=== PATIENT | male | born 1945 | race Hispanic/Latino ===

== ENCOUNTER 2018-11-11 22:14 | Inpatient (IN) | payer MEDICARE ==
[~2018-11-11] VITALS: Ht 160 cm; Wt 68.8 kg
[~2018-11-11 22:14] MED LIST: GEMF600T5 PO; LISI1TAB9 PO; METO-408 PO; PRAV40TA3 PO; WARF2.5T85 PO
[2018-11-11 22:56] LABS: APPEARANCE,URINE Cloudy (CLEAR); BILIRUBIN,URINE Negative (NEGATIVE); COLOR,URINE Yellow (YELLOW); GLUCOSE, URINE (UA) Negative (NEGATIVE); KETONES,URINE Negative (NEGATIVE); LEUKOCYTE ESTERASE ,URINE Moderate (NEGATIVE); NITRATE,URINE Negative (NEGATIVE); OCCULT BLOOD,URINE Moderate (NEGATIVE); PROTEIN,URINE POS 1+ (NEGATIVE)
[2018-11-11] MEDS ORDERED: SODIUM CHLORIDE 0.9% 500ML 500 ML IV ONE (23:17)
[2018-11-11] MEDS ORDERED: ACETAMINOPHEN 325 MG TAB ONE (23:17)
[2018-11-11 23:20] LABS: BACTERIA,URINE Few /HPF (None Seen)
[2018-11-11 23:21] LABS: MUCUS,URINE Moderate LPF (None Seen); RENAL EPITHELIAL CELLS,URINE Few /HPF (None Seen); SQUAMOUS EPITHELIAL CELL,UR Moderate /HPF (0-2)
[2018-11-11 23:21] LABS: BASOPHILS % (AUTO) 0.2 % (0.0-5.0); HEMATOCRIT 44.4 % (42-54); LYMPHOCYTES % (AUTO) 3.6 % (21.0-51.0); MEAN CORPUSCULAR HEMOGLOBIN 31.4 pg (27.0-33.0); MEAN CORPUSCULAR HGB CONC 34.1 g/dL (32.0-36.0); MONOCYTES % (AUTO) 5.7 % (3.0-13.0); NEUTROPHILS % (AUTO) 90.5 % (40.0-77.0); PLATELET COUNT (AUTO) 158 K/uL (130-400); RED BLOOD CELL COUNT(AUTO) 4.82 MIL/uL (4.50-6.20); RED CELL DISTRIBUTION WIDTH 14.1 % (11.0-15.5); WHITE BLOOD COUNT (AUTO) 16.5 K/uL (4.8-10.8)
[2018-11-11 23:30] LABS: CREATININE 1.6 mg/dL (0.5-1.5); POTASSIUM 4.9 mmol/L (3.5-5.1)
[2018-11-11 23:34] LABS: ALBUMIN 3.5 g/dL (3.5-5.0); BILIRUBIN,DIRECT 0.2 mg/dL (0.0-0.3); BILIRUBIN,TOTAL 2.1 mg/dL (0.2-1.0); TOTAL PROTEIN, SERUM 8.2 g/dL (6.0-8.3)
[2018-11-12] MEDS ORDERED: LEVOFLOXACIN 500 MG/D5W 100 ML 100 ML ONE (00:43)
[2018-11-12] MEDS: LEVOFLOXACIN 500 MG/D5W 100 ML 100 ML IV SCH (01:15)
[2018-11-12] MEDS: SODIUM CHLORIDE 0.9% 1000ML 1,000 ML IV SCH ×3 (01:15→17:10)
[2018-11-12] MEDS ORDERED: ONDANSETRON HCL 4 MG/2 ML VIAL IV PRN (01:15)
[2018-11-12 01:56] LABS: BASOPHILS % (AUTO) 0.3 % (0.0-5.0); EOSINOPHILS % (AUTO) 0.1 % (0.0-8.0); HEMATOCRIT 39.3 % (42-54); LYMPHOCYTES % (AUTO) 3.2 % (21.0-51.0); MEAN CORPUSCULAR HEMOGLOBIN 30.7 pg (27.0-33.0); MEAN CORPUSCULAR HGB CONC 33.5 g/dL (32.0-36.0); MEAN CORPUSCULAR VOLUME 91.7 fL (79-99); MONOCYTES % (AUTO) 5.6 % (3.0-13.0); NEUTROPHILS % (AUTO) 90.8 % (40.0-77.0); NUCLEATED RED BLOOD CELLS 0.1 % (0.0-0.19); PLATELET COUNT (AUTO) 131 K/uL (130-400); RED BLOOD CELL COUNT(AUTO) 4.28 MIL/uL (4.50-6.20); RED CELL DISTRIBUTION WIDTH 13.9 % (11.0-15.5); WHITE BLOOD COUNT (AUTO) 15.9 K/uL (4.8-10.8)
[2018-11-12 02:08] LABS: ALBUMIN 2.9 g/dL (3.5-5.0); BILIRUBIN,TOTAL 1.6 mg/dL (0.2-1.0); CREATININE 1.7 mg/dL (0.5-1.5); POTASSIUM 4.1 mmol/L (3.5-5.1); TOTAL PROTEIN, SERUM 6.7 g/dL (6.0-8.3)
[2018-11-12 04:40] VITALS: BP 160/79
[2018-11-12] MEDS: ACETAMINOPHEN 325 MG TAB PO PRN ×4 (04:54→20:06)
[2018-11-12] MEDS ORDERED: WARF2.5T85 PO (06:33)
[2018-11-12] MEDS ORDERED: DRON400T2 PO (06:33)
[2018-11-12 07:16] LABS: BASOPHILS % (AUTO) 0.3 % (0.0-5.0); HEMATOCRIT 40.3 % (42-54); LYMPHOCYTES % (AUTO) 2.6 % (21.0-51.0); MEAN CORPUSCULAR HGB CONC 33.6 g/dL (32.0-36.0); MEAN CORPUSCULAR VOLUME 92.2 fL (79-99); MONOCYTES % (AUTO) 6.8 % (3.0-13.0); NEUTROPHILS % (AUTO) 90.3 % (40.0-77.0); PLATELET COUNT (AUTO) 132 K/uL (130-400); RED BLOOD CELL COUNT(AUTO) 4.37 MIL/uL (4.50-6.20)
[2018-11-12 07:34] LABS: INR 3.47 (0.85-1.15); PARTIAL THROMBOPLASTIN TIME 63.3 SEC (26.3-35.5)
[2018-11-12 07:37] LABS: PROTHROMBIN TIME 35.6 SEC (9.6-11.6)
[2018-11-12 07:40] LABS: ALBUMIN 2.8 g/dL (3.5-5.0); BILIRUBIN,TOTAL 1.5 mg/dL (0.2-1.0); CREATININE 1.9 mg/dL (0.5-1.5); MAGNESIUM 1.7 mg/dL (1.80-2.40); TOTAL PROTEIN, SERUM 6.5 g/dL (6.0-8.3)
[2018-11-12 08:00] VITALS: BP 106/50
[2018-11-12] MEDS: ENOXAPARIN SODIUM 30 MG/0.3 ML SQ SCH (09:00)
[2018-11-12] MEDS ORDERED: PANTOPRAZOLE SODIUM 40 MG TABLET.DR PO SCH (09:00)
[2018-11-12 12:00] VITALS: BP 119/76
--- NOTE | 2018-11-12 12:33 | NUR ---
POSITIVE BLOOD CULTURES PATIENT HAS POSITIVE BLOOD CULTURES AT THIS TIME. AWARE. NEW ORDERS RECEIVED TO REPEAT BLOOD CULTURES NOW. ORDERS RECEIVED AND CARRIED OUT. PATIENT AWARE. WILL CONTIUE TO BE OBSERVED. Addendum: 11/12/18 at 1625 by SE SHANKS RN RN Amended: Links added.
[2018-11-12 16:00] VITALS: BP 118/67
--- NOTE | 2018-11-12 16:26 | NUR ---
DCP CM met with pt and family discussed dc plans. Pt is independent prior to admission, lives at home with spouse. Uses cane on and off. Has a provider 4.5hrs/day. Goes to [facility]. Pt feels safe to go back home, still drives, spouse able to assist as necessary. DC plan to home once stable. CM to cont to follow up. Addendum: 11/12/18 at 1627 by MONE JENSEN LVN CM Amended: Links added.
[2018-11-12] MEDS ORDERED: MAGNESIUM 2GM PREMIX 50ML 50 ML IV SCH (16:30)
[2018-11-12 19:50] VITALS: BP 128/53
[2018-11-12] MEDS: SIMVASTATIN 20 MG TABLET PO SCH (21:37)
[2018-11-12] MEDS: DRONEDARONE HYDROCHLORIDE 400 MG TABLET PO SCH (21:37)
[2018-11-12] MEDS: GEMFIBROZIL 600 MG TABLET PO SCH (21:37)
[2018-11-12] MEDS: METOPROLOL TARTRATE 25 MG TAB PO SCH (21:37)
[2018-11-12 23:34] VITALS: BP 94/53
[2018-11-13] MEDS: LEVOFLOXACIN 500 MG/D5W 100 ML 100 ML IV SCH (00:44)
[2018-11-13 03:05] VITALS: BP 115/62
[2018-11-13 04:47] LABS: HEMATOCRIT 39.5 % (42-54); MEAN CORPUSCULAR HEMOGLOBIN 30.7 pg (27.0-33.0); MEAN CORPUSCULAR HGB CONC 33.9 g/dL (32.0-36.0); MEAN CORPUSCULAR VOLUME 90.6 fL (79-99); NUCLEATED RED BLOOD CELLS 0.1 % (0.0-0.19); PLATELET COUNT (AUTO) 98 K/uL (130-400); RED BLOOD CELL COUNT(AUTO) 4.36 MIL/uL (4.50-6.20); WHITE BLOOD COUNT (AUTO) 10.6 K/uL (4.8-10.8)
[2018-11-13 04:59] LABS: MAGNESIUM 2.5 mg/dL (1.80-2.40); PHOSPHORUS 2.9 mg/dL (2.5-4.9); POTASSIUM 3.9 mmol/L (3.5-5.1)
[2018-11-13 05:02] LABS: B-TYPE NATRIURETIC PEPTIDE 823 pg/mL (0-100)
[2018-11-13 05:20] LABS: INR 4.21 (0.85-1.15)
[2018-11-13 07:00] VITALS: BP 124/70
[2018-11-13] MEDS: DRONEDARONE HYDROCHLORIDE 400 MG TABLET PO SCH ×2 (08:59→21:18)
[2018-11-13] MEDS: ENOXAPARIN SODIUM 30 MG/0.3 ML SQ SCH (09:00)
[2018-11-13] MEDS: METOPROLOL TARTRATE 25 MG TAB PO SCH ×2 (09:00→21:18)
[2018-11-13] MEDS: GEMFIBROZIL 600 MG TABLET PO SCH ×2 (09:00→21:17)
[2018-11-13] MEDS: PANTOPRAZOLE SODIUM 40 MG TABLET.DR PO SCH (09:00)
[2018-11-13] MEDS: [UNRECOGNIZED DRUG - OTHER] PO SCH (09:05)
[2018-11-13] MEDS: HYDROCHLOROTHIAZIDE PO SCH (09:05)
[2018-11-13] MEDS: LISINOPRIL PO SCH (09:05)
[2018-11-13 11:00] VITALS: BP 106/47
[2018-11-13 16:00] VITALS: BP 95/51
[2018-11-13] MEDS: SODIUM CHLORIDE 0.9% 1000ML 1,000 ML IV SCH (18:14)
[2018-11-13] MEDS ORDERED: PHYTONADIONE 10 MG/1 ML AMP IM ONE (18:30)
[2018-11-13 19:05] VITALS: BP 99/58
[2018-11-13] MEDS: SIMVASTATIN 20 MG TABLET PO SCH (21:17)
[2018-11-14 00:20] VITALS: BP 96/51
[2018-11-14] MEDS: LEVOFLOXACIN 500 MG/D5W 100 ML 100 ML IV SCH ×2 (00:47→21:13)
[2018-11-14] MEDS: ACETAMINOPHEN 325 MG TAB PO PRN (03:46)
[2018-11-14 04:25] VITALS: BP 89/60
[2018-11-14 04:37] LABS: HEMATOCRIT 37.2 % (42-54); MEAN CORPUSCULAR HEMOGLOBIN 31.8 pg (27.0-33.0); MEAN CORPUSCULAR HGB CONC 35.1 g/dL (32.0-36.0); MEAN CORPUSCULAR VOLUME 90.7 fL (79-99); PLATELET COUNT (AUTO) 109 K/uL (130-400); RED CELL DISTRIBUTION WIDTH 14.2 % (11.0-15.5); WHITE BLOOD COUNT (AUTO) 8.4 K/uL (4.8-10.8)
[2018-11-14 04:45] LABS: PARTIAL THROMBOPLASTIN TIME 81.8 SEC (26.3-35.5)
[2018-11-14 04:49] LABS: CREATININE 2.1 mg/dL (0.5-1.5); MAGNESIUM 2.4 mg/dL (1.80-2.40); PHOSPHORUS 1.9 mg/dL (2.5-4.9); POTASSIUM 3.7 mmol/L (3.5-5.1)
[2018-11-14] MEDS: SODIUM CHLORIDE 0.9% 1000ML 1,000 ML IV SCH (04:58)
[2018-11-14 05:08] LABS: PROTHROMBIN TIME 36.7 SEC (9.6-11.6)
[2018-11-14 05:09] LABS: INR 3.58 (0.85-1.15)
[2018-11-14 08:00] VITALS: BP 112/61
[2018-11-14] MEDS: GEMFIBROZIL 600 MG TABLET PO SCH ×2 (08:29→21:13)
[2018-11-14] MEDS: PANTOPRAZOLE SODIUM 40 MG TABLET.DR PO SCH (08:29)
[2018-11-14] MEDS: METOPROLOL TARTRATE 25 MG TAB PO SCH ×2 (08:29→21:14)
[2018-11-14] MEDS: [UNRECOGNIZED DRUG - OTHER] PO SCH (08:32)
[2018-11-14] MEDS: LISINOPRIL PO SCH (08:32)
[2018-11-14] MEDS: HYDROCHLOROTHIAZIDE PO SCH (08:32)
[2018-11-14 09:03] LABS: INR 2.96 (0.85-1.15); PARTIAL THROMBOPLASTIN TIME 79.1 SEC (26.3-35.5); PROTHROMBIN TIME 30.4 SEC (9.6-11.6)
[2018-11-14] MEDS: DRONEDARONE HYDROCHLORIDE 400 MG TABLET PO SCH ×2 (09:37→21:13)
[2018-11-14 11:00] VITALS: BP 111/60
[2018-11-14 16:00] VITALS: BP 109/62
[2018-11-14 19:05] VITALS: BP 115/91
[2018-11-14] MEDS: SIMVASTATIN 20 MG TABLET PO SCH (21:13)
[2018-11-15 00:01] VITALS: BP 94/55
[2018-11-15 03:59] VITALS: BP 90/55
[2018-11-15 05:44] LABS: BASOPHILS % (AUTO) 0.3 % (0.0-5.0); EOSINOPHILS % (AUTO) 0.5 % (0.0-8.0); HEMATOCRIT 36.8 % (42-54); LYMPHOCYTES % (AUTO) 9.8 % (21.0-51.0); MEAN CORPUSCULAR HEMOGLOBIN 30.6 pg (27.0-33.0); MEAN CORPUSCULAR HGB CONC 33.9 g/dL (32.0-36.0); MEAN CORPUSCULAR VOLUME 90.2 fL (79-99); MONOCYTES % (AUTO) 12.2 % (3.0-13.0); NEUTROPHILS % (AUTO) 77.2 % (40.0-77.0); PLATELET COUNT (AUTO) 97 K/uL (130-400); RED BLOOD CELL COUNT(AUTO) 4.08 MIL/uL (4.50-6.20); RED CELL DISTRIBUTION WIDTH 14.3 % (11.0-15.5); WHITE BLOOD COUNT (AUTO) 9.3 K/uL (4.8-10.8)
[2018-11-15 05:55] LABS: CREATININE 2.1 mg/dL (0.5-1.5); POTASSIUM 3.6 mmol/L (3.5-5.1)
[2018-11-15 05:59] LABS: INR 1.52 (0.85-1.15); PARTIAL THROMBOPLASTIN TIME 55.2 SEC (26.3-35.5); PROTHROMBIN TIME 15.8 SEC (9.6-11.6)
[2018-11-15 08:15] VITALS: BP 109/71
[2018-11-15] MEDS: LISINOPRIL PO SCH (08:27)
[2018-11-15] MEDS: DRONEDARONE HYDROCHLORIDE 400 MG TABLET PO SCH ×2 (08:27→21:50)
[2018-11-15] MEDS: PANTOPRAZOLE SODIUM 40 MG TABLET.DR PO SCH (08:27)
[2018-11-15] MEDS: [UNRECOGNIZED DRUG - OTHER] PO SCH (08:27)
[2018-11-15] MEDS: METOPROLOL TARTRATE 25 MG TAB PO SCH ×2 (08:27→21:50)
[2018-11-15] MEDS: HYDROCHLOROTHIAZIDE PO SCH (08:27)
[2018-11-15] MEDS: GEMFIBROZIL 600 MG TABLET PO SCH ×2 (08:27→21:50)
[2018-11-15] MEDS: SODIUM CHLORIDE 0.9% 1000ML 1,000 ML IV SCH (11:11)
[2018-11-15 12:35] VITALS: BP 95/66
[2018-11-15 16:35] VITALS: BP 102/61
[2018-11-15 19:18] VITALS: BP 129/69
[2018-11-15] MEDS: SIMVASTATIN 20 MG TABLET PO SCH (21:50)
[2018-11-16] MEDS: LEVOFLOXACIN 500 MG/D5W 100 ML 100 ML IV SCH (00:08)
[2018-11-16 00:20] VITALS: BP 113/67
[2018-11-16] MEDS: SODIUM CHLORIDE 0.9% 1000ML 1,000 ML IV SCH (04:17)
[2018-11-16] MEDS: PANTOPRAZOLE SODIUM 40 MG TABLET.DR PO SCH (06:35)
[2018-11-16 07:20] LABS: INR 1.28 (0.85-1.15); PARTIAL THROMBOPLASTIN TIME 45.7 SEC (26.3-35.5); PROTHROMBIN TIME 13.4 SEC (9.6-11.6)
[2018-11-16] MEDS: METOPROLOL TARTRATE 25 MG TAB PO SCH (08:21)
[2018-11-16] MEDS: GEMFIBROZIL 600 MG TABLET PO SCH (08:21)
[2018-11-16] MEDS: DRONEDARONE HYDROCHLORIDE 400 MG TABLET PO SCH (08:21)
[2018-11-16] MEDS: [UNRECOGNIZED DRUG - OTHER] PO SCH (08:23)
[2018-11-16] MEDS: LISINOPRIL PO SCH (08:23)
[2018-11-16] MEDS: HYDROCHLOROTHIAZIDE PO SCH (08:23)
[2018-11-16 08:26] VITALS: BP 159/69
[2018-11-16 12:12] VITALS: BP 108/53
[2018-11-16] MEDS ORDERED: WARFARIN SODIUM 2.5 MG TAB PO SCH (17:00)
--- NOTE | 2018-11-16 18:17 | NUR ---
Pt d/asad Home Pt safely d/c to home,appointments made, pt instructed to follow up with PCP appointment after discharge home, discharge instruction given to pt and spouse, pt verbalized understanding of d/c instruction, pt transported in w/c accompanied by Spouse, IV d/asad, tip intact, no acute distress noted.
== END 2018-11-16 15:45 | disposition home or self-care (01) | DRG 871 ==
LOC: EDH 22:14 → EDHIP 11-12 00:58 → 3AH 11-12 01:57
PROVIDERS: ADMIT Internal Medicine; ATTEND Internal Medicine
DX: A41.51 Sepsis due to Escherichia coli [E. coli] (principal); N17.0 Acute kidney failure with tubular necrosis; N12 Tubulo-interstitial nephritis, not specified as acute or chronic; I50.22 Chronic systolic (congestive) heart failure; I13.0 Hypertensive heart and chronic kidney disease with heart failure and stage 1 through stage 4 chronic kidney disease, or unspecified chronic kidney disease; D68.59 Other primary thrombophilia; I47.1 Supraventricular tachycardia; I48.2 Chronic atrial fibrillation; N18.3 Chronic kidney disease, stage 3 (moderate); B96.4 Proteus (mirabilis) (morganii) as the cause of diseases classified elsewhere; E11.22 Type 2 diabetes mellitus with diabetic chronic kidney disease; E78.5 Hyperlipidemia, unspecified; I25.10 Atherosclerotic heart disease of native coronary artery without angina pectoris; I25.5 Ischemic cardiomyopathy; N40.0 Benign prostatic hyperplasia without lower urinary tract symptoms; Z95.810 Presence of automatic (implantable) cardiac defibrillator; Z88.0 Allergy status to penicillin; Z95.5 Presence of coronary angioplasty implant and graft; Z79.899 Other long term (current) drug therapy; Z79.01 Long term (current) use of anticoagulants; Z79.84 Long term (current) use of oral hypoglycemic drugs
CPT/HCPCS: 36415; 74176; 80048; 80053; 80076; 81001; 83605; 83735; 83880; 84100; 85025; 85027; 85610; 85730; 87040; 87077; 87088; 87186; 93005; G0378; J1650; J1956; J2405; J3430; J7040

== ENCOUNTER → 2019-07-20 | Outpatient (CLI) | payer MEDICARE ==
[~2019-07-20] VITALS: Ht 160 cm; Wt 69.9 kg
[~2019-07-20] MED LIST changes: +DRON400T2 PO; +LISI1TAB32 PO; -LISI1TAB9 PO; +REGADENOSON 0.4 MG/5 ML PF SYG IVP SCH
== END | disposition home or self-care (01) ==
LOC: SHCH 08:12
PROVIDERS: ATTEND Internal Medicine Cardiovascular Disease
DX: I63.9 Cerebral infarction, unspecified (principal); R06.09 Other forms of dyspnea; R07.9 Chest pain, unspecified; R01.1 Cardiac murmur, unspecified
CPT/HCPCS: 78452; 93017; 96374; A9500 ×2; J2785

== ENCOUNTER → 2019-07-27 | Outpatient (CLI) | payer MEDICARE ==
[~2019-07-27] MED LIST changes: -REGADENOSON 0.4 MG/5 ML PF SYG IVP SCH
== END | disposition home or self-care (01) ==
LOC: SHCH 10:44
PROVIDERS: ATTEND Internal Medicine Cardiovascular Disease
DX: I08.1 Rheumatic disorders of both mitral and tricuspid valves (principal); I11.9 Hypertensive heart disease without heart failure
CPT/HCPCS: 93306

== ENCOUNTER 2019-08-03 05:30 | Day surgery (SDC) | payer MEDICARE ==
[2019-08-02 10:51] VITALS: BP 133/67
[2019-08-02 11:04] LABS: BASOPHILS % (AUTO) 0.7 % (0.0-5.0); EOSINOPHILS % (AUTO) 2.2 % (0.0-8.0); HEMATOCRIT 45.8 % (42-54); LYMPHOCYTES % (AUTO) 27.4 % (21.0-51.0); MEAN CORPUSCULAR HEMOGLOBIN 31.3 pg (27.0-33.0); MEAN CORPUSCULAR HGB CONC 33.8 g/dL (32.0-36.0); MEAN CORPUSCULAR VOLUME 92.5 fL (79-99); MONOCYTES % (AUTO) 9.9 % (3.0-13.0); NEUTROPHILS % (AUTO) 59.8 % (40.0-77.0); PLATELET COUNT (AUTO) 155 K/uL (130-400); RED BLOOD CELL COUNT(AUTO) 4.95 MIL/uL (4.50-6.20); RED CELL DISTRIBUTION WIDTH 14.1 % (11.0-15.5); WHITE BLOOD COUNT (AUTO) 6.4 K/uL (4.8-10.8)
[2019-08-02 11:11] LABS: CREATININE 1.6 mg/dL (0.5-1.5); POTASSIUM 4.1 mmol/L (3.5-5.1)
[2019-08-02 11:14] LABS: INR 1.34 (0.85-1.15); PARTIAL THROMBOPLASTIN TIME 31.1 SEC (26.3-35.5); PROTHROMBIN TIME 13.9 SEC (9.6-11.6)
[2019-08-02 11:32] LABS: APPEARANCE,URINE Clear (CLEAR); BILIRUBIN,URINE Negative (NEGATIVE); COLOR,URINE Yellow (YELLOW); GLUCOSE, URINE (UA) Negative (NEGATIVE); KETONES,URINE Negative (NEGATIVE); LEUKOCYTE ESTERASE ,URINE Negative (NEGATIVE); NITRATE,URINE Negative (NEGATIVE); OCCULT BLOOD,URINE Negative (NEGATIVE); PH,URINE 6.5 (5.0-8.0); PROTEIN,URINE Trace mg/dL (NEGATIVE)
[2019-08-02 12:16] LABS: BACTERIA,URINE None Seen /HPF (None Seen); RBC,URINE 0-1 /HPF (0-1); SQUAMOUS EPITHELIAL CELL,UR 0-2 /HPF (0-2); WBC,URINE 0-1 /HPF (0-1)
--- NOTE | 2019-08-02 13:22 | NUR ---
LABS ABNORMAL BUN/CREA. PT/INR REPORTED TO ALDO WILLIAM, NO FURTHER ORDERS GIVEN OK TO PROCEED WITH PROCEDURE
[~2019-08-03] VITALS: Ht 158.8 cm; Wt 69.5 kg
[2019-08-03] VITALS (9 sets, daily range): BP systolic 114–143; BP diastolic 64–87
[~2019-08-03 05:30] MED LIST changes: +HYDR12.54 PO; -LISI1TAB32 PO; +SODIUM CHLORIDE 0.9% 500ML 500 ML IV SCH; +TORS20TA4 PO
--- NOTE | 2019-08-03 06:05 | NUR ---
PATIENT ARRIVED PATIENT ARRIVED TO DAY PATIENT ACCOMPANIED BY DAUGHTER (LILLI VILLAGOMEZ) PATIENT AAO X 3, RESPIRATIONS UNLABORED, VITAL SIGNS STABLE, DENIES ANY PAIN AT THIS TIME. PROCEDURE CONFIRMED/VERIFIED WITH PATIENT, ALL QUESTIONS/CONCERNS ADDRESSED. HOSPITAL ROUTINE EXPLAINED TO PATIENT AND PATIENT VERBALIZED UNDERSTANDING. SIDE RAILS UP X2, BED IN LOWEST POSITION, CALL JIMÉNEZ IN REACH.
--- NOTE | 2019-08-03 07:15 | NUR ---
PATIENT TRANSFERRED PATIENT TAKEN TO CATH VIA BED BY VIOLETTE LEMA. PATIENT'S DAUGHTER INSTRUCTED TO WAIT IN THE ROOM SO THE DR CAN SPEAK WITH HER FOLLOWING PROCEDURE .
[2019-08-03] MEDS ORDERED: SODIUM CHLORIDE 0.9% 1000ML 1,000 ML IV SCH (08:33)
[2019-08-03] MEDS ORDERED: ACETAMINOPHEN-CODEINE 300/30MG TAB PO PRN (08:45)
[2019-08-03] MEDS ORDERED: NITROGLYCERIN 0.4 MG SL TAB SL PRN (08:45)
[2019-08-03] MEDS ORDERED: DEXTROSE 50%-WATER 50 ML DISP.SYRIN IV PRN (08:45)
[2019-08-03] MEDS ORDERED: GLUCAGON 1MG KIT 1 MG ML IM PRN (08:45)
--- NOTE | 2019-08-03 09:05 | NUR ---
PATIENT RETURNED PATIENT BROUGHT BACK FROM [facility] [employer] [employer] VIA BED BY VIOLETTE LEMA. PATIENT AAOX3, RESPIRATIONS UNLABORED, VITAL SIGNS STABLE, DENIES ANY PAIN AT THIS TIME. DRESSING TO RIGHT GROIN WITH DSTAT IN PLACE, DRY AND INTACT. AREA IS SOFT/NONTENDER, NO BLEEDING OR DRAINAGE NOTED. PATIENT DAUGHTER AT BEDSIDE, PATIENT INSTRUCTED TO LAY FLAT AND KEEP RIGHT LEG STRAIGHT, PATIENT VERBALIZED UNDERSTANDING.
--- NOTE | 2019-08-03 12:25 | NUR ---
DISCHARGE INSTRUCTIONS DISCHARGE INSTRUCTIONS PROVIDED TO PATIENT'S DAUGHTER, FOLLOW UP APPOINTMENT PROVIDED AND EXPLAINED TO CONTINUE HOME MEDS TONIGHT. HANDOUT PROVIDED ON FEMORAL SITE CARE AND POST ANGIOGRAM CARE, PATIENT'S DAUGHTER VERBALIZED UNDERSTANDING OF INSTRUCTIONS. ALL QUESTIONS/CONCERNS ADDRESSED.
--- NOTE | 2019-08-03 12:40 | NUR ---
PATIENT DISCHARGED FROM HOSPITAL VIA WHEELCHAIR, AND PATIENT WAS ABLE TO TRANSFER HIMSELF UNASSISTED INTO PRIVATE VEHICLE DRIVEN BY HIS DAUGHTER.
== END 2019-08-03 12:40 | disposition home or self-care (01) ==
LOC: DAH 05:30
PROVIDERS: ATTEND Internal Medicine Cardiovascular Disease
DX: I25.110 Atherosclerotic heart disease of native coronary artery with unstable angina pectoris (principal); I13.0 Hypertensive heart and chronic kidney disease with heart failure and stage 1 through stage 4 chronic kidney disease, or unspecified chronic kidney disease; N18.3 Chronic kidney disease, stage 3 (moderate); I50.42 Chronic combined systolic (congestive) and diastolic (congestive) heart failure; I42.8 Other cardiomyopathies; I34.0 Nonrheumatic mitral (valve) insufficiency; I27.20 Pulmonary hypertension, unspecified; E78.5 Hyperlipidemia, unspecified; I48.0 Paroxysmal atrial fibrillation; I25.2 Old myocardial infarction; Z79.01 Long term (current) use of anticoagulants; Z79.899 Other long term (current) drug therapy; Z95.810 Presence of automatic (implantable) cardiac defibrillator; Z88.0 Allergy status to penicillin; Z87.891 Personal history of nicotine dependence; Z82.5 Family history of asthma and other chronic lower respiratory diseases
CPT/HCPCS: 36415; 71045; 80048; 81001; 85025; 85610; 85730; 93005; 93460; A4215 ×2; A4216; A4221; A4222; A4223 ×3; A4606; A4663; C1769; C1894 ×3; Q9965; 99156; 99157